=== PATIENT | female | born 1950 | race Caucasian/White ===

== ENCOUNTER 2017-04-20 09:34 | Outpatient (CLI) | payer MEDICARE, OTHER ==
[2016-06-16 12:00] VITALS: BP 127/67
== END 2017-04-20 09:35 ==
LOC: RAD 09:34
PROVIDERS: ATTEND Family Medicine
DX: Z78.0 Asymptomatic menopausal state (principal)
CPT/HCPCS: 77080

== ENCOUNTER 2019-05-28 09:47 | Outpatient (CLI) | payer MEDICARE, OTHER ==
[2016-06-16 12:00] VITALS: BP 127/67
--- NOTE | 2019-05-30 10:10 | Diagnostic Imaging Report ---
GEOVANNI MAGAÑA [facility] [id number] [address] Report Submission Date: May 28, 2019 11:23:42 AM CDT Patient Study Name: KURT MOLINA Date: May 28, 2019 12:00:00 AM CDT Modality Type: DEXA\OT Gender: F Description: DEXA : 50 Institution: [facility] Physician: GEOVANNI MAGAÑA Examination: Bone density History: Assess bone mineralization Comparison exams: 20 April 2017 Technique: DEXA protocol Findings: Average bone mineral density from L1 through L4: 0.946 grams cm2. T score: -2.0 Average bone mineral density of the left femoral neck: 0.714 grams cm2. T score: -2.3 Average bone mineral density of the right femoral neck: 0.723 grams cm2. T score: -2.3 Impression: Lumbar spine and femoral neck osteopenia. Electronically signed on May 28, 2019 11:23:42 AM CDT by: Jerson HALL
== END 2019-05-28 09:50 ==
LOC: RAD 09:47
PROVIDERS: ATTEND Family Medicine
DX: Z78.0 Asymptomatic menopausal state (principal)
CPT/HCPCS: 77080